=== PATIENT | female | born 1955 | race Caucasian/White ===

== ENCOUNTER 2023-12-20 07:28 | Day surgery (SDC) | payer MEDICARE, MEDICAID, SELFPAY ==
--- NOTE | 2023-12-19 08:25 | HO.ANESPROP2 ---
Documented by User: Tania Castano NP 12/19/23 08:25 HPI - Anesthesia Eval Consult details Narrative: 68yo F for Upper Endoscopy and Colon[facility] Past Medical History Medical History (Updated 12/19/23 @ 07:28 by Delma Burr, RN) Hx of hiatal hernia Hx of gastroesophageal reflux (GERD) History of diverticulosis Hx of hemorrhoids Anemia HTN (hypertension) Surgical History Surgical History (Updated 12/19/23 @ 07:28 by Delma Burr, RN) Hx of esophagogastroduodenoscopy Hx of colonoscopy Social History Social History Patient Tobacco Use Status: Never used Tobacco Use of substances other than those prescribed or required for medical reasons: No Are you DNR?: No Advance Directives: No Advance Directives Information Provided: Yes Meds Allergies Allergy/AdvReac Type Severity Reaction Status Date / Time acetaminophen [Percocet] Allergy Unknown gastritis Verified 07/21/17 00:00 oxycodone [Percocet] Allergy Unknown gastritis Verified 07/21/17 00:00 codeine [CODEINE] AdvReac Unknown ABDOMINAL Unverified 07/09/20 16:19 PAIN codeine Allergy Unknown gastritis Uncoded 07/21/17 00:00 From PERCOCET AdvReac Unknown ADBOMINAL Uncoded 07/09/20 16:19 PAIN Home Medications Medication Instructions Recorded Confirmed Last Taken Type Aspir-81 12/19/23 Unknown History Magnesia 12/19/23 12/19/23 Unknown History atorvastatin 10 mg tablet 10 mg PO DAILY 12/19/23 12/19/23 Unknown History famotidine 40 mg tablet 40 mg PO DAILY 12/19/23 12/19/23 Unknown History losartan 100 1 tab PO DAILY 12/19/23 12/19/23 Unknown History mg-hydrochlorothiazide 25 mg tablet paroxetine HCl 20 mg tablet 20 mg PO DAILY 12/19/23 12/19/23 Unknown History potassium chloride 20 mEq 20 meq PO DAILY 12/19/23 12/19/23 Unknown History tablet,extended release Assessment and Plan Assessment Anesthesia Assessment: Chart Reviewed Documented by User: Baylee Crockett MD 12/20/23 09:15 [facility] Past Medical History Medical History (Updated 12/19/23 @ 07:28 by Delma Burr, JOS) Hx of hiatal hernia Hx of gastroesophageal reflux (GERD) History of diverticulosis Hx of hemorrhoids Anemia HTN (hypertension) Functional capacity: wheelchair bound Family History Family history of problems with anesthesia: No Surgical History Surgical History (Updated 12/19/23 @ 07:28 by Delma Burr RN) Hx of esophagogastroduodenoscopy Hx of colonoscopy History of Problems with Anesthesia: No Social History Social History Patient Tobacco Use Status: Never used Tobacco Use of substances other than those prescribed or required for medical reasons: No Are you DNR?: No Advance Directives: No Advance Directives Information Provided: Yes Meds Allergies Allergy/AdvReac Type Severity Reaction Status Date / Time acetaminophen [Percocet] Allergy Unknown gastritis Verified 07/21/17 00:00 oxycodone [Percocet] Allergy Unknown gastritis Verified 07/21/17 00:00 codeine [CODEINE] AdvReac Unknown ABDOMINAL Unverified 07/09/20 16:19 PAIN codeine Allergy Unknown gastritis Uncoded 07/21/17 00:00 From PERCOCET AdvReac Unknown ADBOMINAL Uncoded 07/09/20 16:19 PAIN Home Medications Medication Instructions Recorded Confirmed Last Taken Type Aspir-81 12/19/23 Unknown History Magnesia 12/19/23 12/19/23 Unknown History atorvastatin 10 mg tablet 10 mg PO DAILY 12/19/23 12/19/23 Unknown History famotidine 40 mg tablet 40 mg PO DAILY 12/19/23 12/19/23 Unknown History losartan 100 1 tab PO DAILY 12/19/23 12/19/23 Unknown History mg-hydrochlorothiazide 25 mg tablet paroxetine HCl 20 mg tablet 20 mg PO DAILY 12/19/23 12/19/23 Unknown History potassium chloride 20 mEq 20 meq PO DAILY 12/19/23 12/19/23 Unknown History tablet,extended release Exam Airway Mallampati Class: III TM Dist: >3cm Neck ROM: Full Partial: Lower (left perm bridge) Heart: rrr Lungs: cta Assessment and Plan Assessment Anesthesia Assessment: Anesthesia Plan Discussed Final Anesthetic Review Family History of Problems with Anesthesia: No History of Problems with Anesthesia: No NPO: Yes ASA Class: II Final Preanesthetic Review: No Changes in Pt Med Stat, Meds/Allgs Chart Reviewed and Consent Obtained/Reviewed Patient Risk: Intermediate Procedure Risk: Intermediate Anesthetic Plan Anesthetic Plan: MAC: Disposition: Standard PACU
[2023-12-20 08:24] VITALS: BMI 31.2
[2023-12-20] MEDS: Lactated Ringers 1,000 ML 100 ML IVCONT (09:00)
[2023-12-20 09:28] VITALS: BP 136/73; PULSE 70; RESP 16; TEMP 36.3; O2SAT 92
[2023-12-20 10:58] VITALS: BP 122/56; PULSE 74; RESP 16; TEMP 37.1; O2SAT 99
--- NOTE | 2023-12-20 11:07 | PM.OP ---
Brief Operative Note Date of Service: 12/20/23 Pre-op diagnosis: GERD, Screening Post-op diagnosis: other (Hiatal hernia, Gastritis, Gastric polyps, Rectal polyp) Procedure: EGD with biopsies, Colonoscopy to the cecum with cold snare polypectomy Surgeon: Bradford Allen MD Anesthesia: MAC Was an [employer] used for this Procedure?: No Estimated blood loss (mL): 2.0 Pathology: other (A. Gastric antrum B. Gastric polyps C. Rectal polyp) Condition: stable Disposition: PACU
[2023-12-20 11:13] VITALS: BP 136/53; PULSE 71; RESP 16; TEMP 36.4; O2SAT 95
--- NOTE | 2023-12-20 12:37 | OP_ITS ---
DATE OF SERVICE: 12/20/2023 SURGEON: Bradford Allen MD INDICATIONS: The patient presents for followup of personal history of colon polyps, colorectal cancer screening, and gastroesophageal reflux. Full consent has been obtained from her for this, including risks of bleeding and perforation. PREOPERATIVE DIAGNOSIS: POSTOPERATIVE DIAGNOSIS: PROCEDURE PERFORMED: ESTIMATED BLOOD LOSS: COMPLICATIONS: ANESTHESIA: Monitored anesthesia care. ASSISTANTS: SPECIMENS: PREOPERATIVE DIAGNOSES: Gastroesophageal reflux, personal history of colon polyps, and colorectal cancer screening. POSTOPERATIVE DIAGNOSES: Gastroesophageal reflux, personal history of colon polyps, colorectal cancer screening, hiatal hernia, gastritis, gastric polyps, rectal polyp, diverticulosis, and internal hemorrhoids. PROCEDURES PERFORMED: Esophagogastroduodenoscopy with biopsies, and colonoscopy to the cecum with cold snare polypectomy. DESCRIPTION OF PROCEDURE: The patient was placed in the left lateral decubitus position. The Olympus video gastroscope was passed in the posterior oropharynx and upper esophagus under direct vision. The scope was passed slowly to the distal esophagus. The gastroesophageal junction was visualized at 35 cm. There was no sign of any esophagitis nor Martinez esophagus. There was a small hiatal hernia. The scope was advanced to the pylorus and the duodenum was cannulated to the descending portion. The duodenum including the bulb appeared normal other than some erythema in the duodenal bulb. The scope was withdrawn back to the stomach. The gastric antrum had areas of gastritis with some erythema and edema, but no erosions or ulceration. There was good peristalsis. Biopsies were obtained from the gastric antrum. The scope was retroflexed, visualizing the proximal stomach carefully, which appeared normal, without any sign of mass or ulceration, other than some hyperplastic-appearing gastric polyps. Biopsies were obtained from two of those. The scope was withdrawn back to the esophagus. The esophageal mucosa appeared normal. The scope was withdrawn from the patient. She was turned around for the colonoscopy. The digital rectal exam revealed no abnormalities. The Olympus video pediatric colonoscope was then entered into the rectum and advanced easily to the cecum. Once in the cecum, I did identify normal-appearing cecal pouch with appendiceal orifice and a normal-appearing ileocecal valve. There was transillumination of light deep in the right lower quadrant. The entire cecum and ileocecal valve appeared normal. The scope was slowly withdrawn, assessing all mucosal surfaces carefully. Preparation was excellent. In the rectum, there was an approximately 6 mm polyp, which was removed by cold snare polypectomy and recovered by suction. The polypectomy site appeared clean, without any sign of residual polyp nor significant bleeding. I did not visualize any other polyps, colitis, or angiodysplasia. There was a mild amount of sigmoid diverticulosis. In the rectum, scope was retroflexed, visualizing internal hemorrhoids, but no other pathology. The rectal mucosa appeared normal. The scope was straightened and withdrawn from the patient. She tolerated both procedures well and was returned to the recovery area in stable condition. IMPRESSION: 1. Gastric polyps. 2. Gastritis. 3. Hiatal hernia. 4. Rectal polyp. 5. Diverticulosis. 6. Internal hemorrhoids. PLAN: The results of the pathology will be checked. She was advised not to use any aspirin and NSAIDs for 1 week. I would recommend a repeat colonoscopy in 5 years. She was advised to continue famotidine once or twice a day for her reflux, but to call me if this is not helping and we can then switch her to something such as omeprazole. She will see me, otherwise, on a p.r.n. basis. This has been discussed with her sister, Victorina. MD PERRY Dumont/HEATHER / [phone]
== END 2023-12-20 11:35 | disposition home or self-care (01) ==
PROVIDERS: PCP Internal Medicine; Visit Provider Internal Medicine
PROC: (CPT 45385; principal; 2023-12-20 10:40)
DX: Z12.11 Encounter for screening for malignant neoplasm of colon (principal); Z86.010 Personal history of colon polyps; Z80.0 Family history of malignant neoplasm of digestive organs; K62.1 Rectal polyp; K57.30 Diverticulosis of large intestine without perforation or abscess without bleeding; K64.8 Other hemorrhoids; K21.9 Gastro-esophageal reflux disease without esophagitis; K29.50 Unspecified chronic gastritis without bleeding; K31.7 Polyp of stomach and duodenum; K44.9 Diaphragmatic hernia without obstruction or gangrene; I10 Essential (primary) hypertension; Z79.899 Other long term (current) drug therapy; Z79.82 Long term (current) use of aspirin
CPT/HCPCS: 45385; 43239; 88302; 88305; 88313; 88342; J2250; J2704; J3010